=== PATIENT | female | born 1940 | race Caucasian/White ===

== ENCOUNTER → 2021-08-30 20:21 | Outpatient (REF) | payer MEDICARE, OTHER, SELFPAY | LOC: HO.SL 20:21 | PROVIDERS: PCP Physician Assistant Medical; Visit Provider Psychiatry & Neurology Neurology | DX: R40.0 Somnolence (principal); G47.51 Confusional arousals | CPT/HCPCS: 95810 ==

== ENCOUNTER → 2021-11-28 15:38 | Outpatient (BNVA) | payer MEDICARE, OTHER, SELFPAY | PROVIDERS: Visit Provider Nurse Practitioner Family | DX: G47.33 Obstructive sleep apnea (adult) (pediatric) (principal); G47.61 Periodic limb movement disorder; R06.83 Snoring; Z79.899 Other long term (current) drug therapy | CPT/HCPCS: Q3014 ==